=== PATIENT | female | born 1990 | race African-American/Black ===

== ENCOUNTER 2018-01-16 22:55 | Emergency (ER) | payer SELFPAY ==
[2018-01-16] MEDS: FLUORESCEIN OPHTH TEST STRIP. OS (23:09)
[2018-01-16] MEDS: TETRACAINE 0.5% OPHTH SOLUTION 4ML BOTTLE. OS (23:09)
== END 2018-01-16 23:28 | disposition home or self-care (01) ==
LOC: ER 23:28
DX: S05.02XA Injury of conjunctiva and corneal abrasion without foreign body, left eye, initial encounter (principal); E05.90 Thyrotoxicosis, unspecified without thyrotoxic crisis or storm; X58.XXXA Exposure to other specified factors, initial encounter; Y93.89 Activity, other specified; Y92.89 Other specified places as the place of occurrence of the external cause; Y99.8 Other external cause status
CPT/HCPCS: 99283

== ENCOUNTER 2020-12-03 06:37 | Emergency (ER) | payer MEDICAID ==
[~2020-12-03] VITALS: Ht 171.4 cm; Wt 77.3 kg
[~2020-12-03 06:37] MED LIST: ERYT1OIN6 LEFTEYE
[2020-12-03 07:13] VITALS: BP 135/60
--- NOTE | 2020-12-03 07:19 | PHYS DOC ---
Past Medical History Past Medical History: Hyperthyroid Additional Past Medical Histor: overactive thyroid Past Surgical History: Additional Past Surgical Histo: x 4 Smoking Status: Current Every Day Smoker Alcohol Use: Occasionally Drug Use: Marijuana General Adult EDM: Chief Complaint: SORE THROAT HPI: HPI: 30-year-old female pmh hypothyroidism presents the ED with complaints of sore throat for the past 2 days with associated mild, diffuse headache, fatigue and subjective fever and chills. Reports has been taking her temperature all weekend, T-max was 99 degrees. Has not taken any Tylenol ibuprofen prior to ED arrival. 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 Tested negative for Covid at the half-way on Thursday. Has not received Covid vaccine. Reports history of strep 6 months ago. Patient also reports history of tachycardia when noncompliant with her methimazole. Is on methimazole 10 mg ECI daily. Prescription bottle present in ED with and was last filled October 01, 2020. Has 3 refills. Patient has been intermittently taking her methimazole, believed her insurance was not active which she just found out was incorrect. Review of Systems: Review of Systems: Constitutional: Denies lethargy or confusion Eyes: Denies change in visual acuity. [] HENT: Denies nasal congestion or rhinorrhea Respiratory: Denies cough or shortness of breath. [] Cardiovascular: Denies chest pain or edema. [] GI: Denies abdominal pain, nausea, vomiting, bloody stools or diarrhea. [] : Denies dysuria or vaginal bleeding Musculoskeletal: Denies back pain or joint pain. [] Integument: Denies rash or diaphoresis Neurologic: Denies neck pain or stiffness, focal weakness or sensory changes. [] Endocrine: Denies polyuria or polydipsia. [] Lymphatic: Denies swollen glands. [] Psychiatric: Denies depression or anxiety. [] Heart Score: C/O Chest Pain: No Risk Factors: Risk Factors: DM, Current or recent (<one month) smoker, HTN, HLP, family history of CAD, obesity. Risk Scores: Score 0 - 3: 2.5% MACE over next 6 weeks - Discharge Home Score 4 - 6: 20.3% MACE over next 6 weeks - Admit for Clinical Observation Score 7 - 10: 72.7% MACE over next 6 weeks - Early Invasive Strategies Allergies: Allergies: Allergies Coded Allergies Type Severity Reaction Last Updated Verified No Known Drug Allergies 02/26/15 No Physical Exam: PE: Constitutional: Well developed, well nourished, no acute distress, non-toxic appearance. HENT: Normocephalic, atraumatic, moist mucous membranes, very large nonerythematous tonsils with bilateral exudates (tonsils almost touching, approximately 80% oropharynx width)-Mallampati 4, uvula midline, no palatal petechiae, tongue in normal position, no submental pain Eyes: EOMI, conjunctiva normal, no discharge. Neck: Normal range of motion, supple, no anterior/posterior neck pain or swelling, no nuchal rigidity or meningismus, Cardiovascular: S1/2 present, mild tachycardia 104 on arrival, 84 during my exam Lungs & Thorax: Speaking in full sentences, bilateral equal chest rise, no tachypnea or increased work of breathing, no drooling or spitting/is controlling her secretions Abdomen: soft, no tenderness, Skin: Warm, dry, no erythema, no rash. [] Back: No midline tenderness, no CVA tenderness. [] Extremities: No tenderness, no cyanosis, no lower extremity edema Neurologic: Alert and oriented X 3, normal motor function, normal sensory function, no focal deficits noted. [] Psychologic: Affect normal, judgement normal, mood normal/very reasonable EKG: EKG: [] Radiology/Procedures: Radiology/Procedures: [] Course & Med Decision Making: Course & Med Decision Making Pertinent Labs and Imaging studies reviewed. (See chart for details) COVID-19 CRITERIA: The patient was evaluated during the global COVID-19 pandemic, and that diagnosis was suspected/considered upon their initial presentation. Their evaluation, treatment and testing was consistent with current guidelines for patients who present with complaints or symptoms that may be related to COVID-19. Concern for acute streptococcal pharyngitis. I recommended labs for Monospot testing, test and LFT check. Rapid strep positive. Covid test pending. Patient requests medication refill for methimazole- test negative. Will discharge home with strict ED return precautions were given for worsening neck pain, nuchal rigidity, difficulties controlling secretions, speech changes, difficulties breathing, worsening fever rash confusion. Encouraged urgent outpatient follow-up with PMD for repeat evaluation and hemoglobin check. Life- threatening processes were considered but are low suspicion at this time, given history, physical exam and ED workup. Pt was educated on all prescription medications and adverse effects. All patient's questions were answered and pt was stable at time of discharge. Life/limb-threatening differential includes but is not limited to, reese's angina, peritonsillar abscess, retropharyngeal abscess, epiglottitis, bacterial tracheitis, uvulitis, sepsis, mastoiditis, traumatic injury, carotid/vertebral dissection, intracranial aneurysms or neurologic process. I spoken with the patient and her caregivers. I explained the patient's condi tion, diagnoses and treatment plan based on the information available to me at this time. I have answered the patient and her caregiver's questions and addressed any concerns. The patient and her caregivers have a good understanding of patient's diagnosis, condition and treatment plan as can be expected at this point. Vital signs have been stable. Patient's condition is stable and appropriate for discharge from the emergency department. Patient will pursue further outpatient evaluation with primary care physician or other designated or consulting physician as outlined in the discharge instructions. The patient and/or caregivers are agreeable to this plan of care and follow-up instructions have been explained in detail. The patient and/or caregivers have received these instructions in written form and have expressed an understanding of the discharge instructions. The patient and/or caregivers are aware that any significant change of condition or worsening of symptoms should prompt immediate return to this or the closest emergency department or call to 911. Alexey Disclaimer: Alexey Disclaimer: This electronic medical record was generated, in whole or in part, using a voice recognition dictation system. Departure Departure Impression: Primary Impression: Acute streptococcal pharyngitis Additional Impressions: Person under investigation for COVID-19 Microcytic anemia Disposition: HOME / SELF CARE / HOMELESS Condition: STABLE Referrals: NO PCP (PCP) Follow-up with your primary care physician in the next week to have hemoglobin rechecked (was 8.7) or FOLLOW UP WITH FAMILY MEDICINE: [address], [address] [place] [address] Phone: [phone] Patient Instructions: Iron Deficiency Anemia, Strep Throat Additional Instructions: Return to ED immediately if your oxygen level drops below 90% (purchase a pulse oximetry at a medical supply store), difficulties breathing including rapid breathing or increased work of breathing (skin sucking under ribs), chest pain or stroke-like symptoms (facial droop, speech changes, arm/leg weakness). EMERGENCY DEPARTMENT GENERAL DISCHARGE INSTRUCTIONS Thank you for coming to [facility] Emergency Department (ED) today and trusting us with you care. We trust that you had a positive experience in our Emergency Department. If you wish to speak to the department management, you may call the Director at [phone]. YOUR FOLLOW UP INSTRUCTIONS ARE FOLLOWS: 1. Do you have a private Doctor? If you do not have a private doctor, please ask for a resource list of physicians or clinics that may be able to assist you with follow up care. 2. The Emergency Physicain has interpreted your x-rays. The X-Ray specialist will also review them. If there is a change in the findings, you will be notified in 48 hours when at all possible. 3. A lab test or culture has been done, your results will be reviewed and you will be notified if you need a change in treatment. ADDITIONAL INSTRUCTIONS AND INFORMATION: 1. Your care today has been supervised by a physician who is specially trained in emergency care. Many problems require more than one evaluation for a complete diagnosis and treatment. We recommend that you schedule your follow up appointment as recommended to ensure complete treatment of you illness or injury. If you are unable to obtain follow up care and continue to have a problem, or if your condition worsens, we recommend that you return to the ED. 2. We are not able to safely determine your condition over the phone nor are we able to give sound medical advice over the phone. For these safety reasons, if you call for medical advice we will ask you to come to the ED for further evaluation. 3. If you have any questions regarding these discharge instructions please call the ED at [phone]. SAFETY INFORMATION: In the interest of safety, wellness, and injury prevention; we encourage you to wear your sealbelt, if you smoke; quite smoking, and we encourage family to use a protective helmet for bicycling and other sporting events that present an increased risk for head injury. IF YOUR SYMPTOMS WORSEN OR NEW SYMPTOMS DEVELOP, OR YOU HAVE CONCERNS ABOUT YOUR CONDITION; OR IF YOUR CONDITION WORSENS WHILE YOU ARE WAITING FOR YOUR FOLLOW UP APPOINTMENT; EITHER CONTACT YOUR PRIMARY CARE DOCTOR, THE PHYSICIAN WHOSE NAME AND NUMBER YOU WERE GIVEN, OR RETURN TO THE ED IMMEDIATELY. Scripts Benzocaine/Menthol (CEPACOL SORE THROAT LOZENGE) 1 Each Lozenge 1 TAB PO Q4HRS for sore throat for 3 Days, #18 TAB 0 Refills Prov: SHANTELL MACIEL DO 12/03/20 Ferrous Sulfate (IRON) 325 Mg Tablet 1 TAB PO DAILY for 30 Days, #30 TAB 0 Refills Prov: SHANTELL MACIEL DO 12/03/20 Penicillin V Potassium (PENICILLIN V POTASSIUM) 500 Mg Tablet 1 TAB PO QID for 10 Days, #40 TAB Prov: SHANTELL MACIEL DO 12/03/20 Methimazole (TAPAZOLE) 10 Mg Tablet 1 TAB PO DAILY for 30 Days, #30 TAB 0 Refills Prov: SHANTELL MACIEL DO 12/03/20 SHANTELL MACIEL DO December 03, 2020 07:19
[2020-12-03] MEDS ORDERED: DEXAMETHASONE 4 MG TABLET PO ONE (07:30)
[2020-12-03 07:48] LABS: BASO # 0.1 x10^3/uL (0.0-0.2); BASO % 1 % (0-3); EOS % 0 % (0-3); HEMATOCRIT 28.3 % (36.0-47.0); HEMOGLOBIN 8.7 g/dL (12.0-15.5); LYMPH # 1.2 x10^3/uL (1.0-4.8); LYMPH % 10 % (24-48); MEAN CORPUSCULAR HEMOGLOBIN 20 pg (25-35); MEAN CORPUSCULAR HGB CONC 31 g/dL (31-37); MEAN CORPUSCULAR VOLUME 65 fL (79-100); MONO % 8 % (0-9); NEUT # 10.6 x10^3/uL (1.8-7.7); NEUT % 82 % (31-73); PLATELET COUNT 257 x10^3/uL (140-400); RED BLOOD COUNT 4.36 x10^6/uL (3.50-5.40); RED CELL DISTRIBUTION WIDTH 17.3 % (11.5-14.5)
[2020-12-03 08:00] LABS: CALCIUM 8.3 mg/dL (8.5-10.1); CREATININE 0.6 mg/dL (0.6-1.0); GFR 140.2; POTASSIUM 3.4 mmol/L (3.5-5.1)
[2020-12-03 08:04] LABS: MONONUCLEOSIS PATIENT NEGATIVE (NEGATIVE)
[2020-12-03 08:06] LABS: ALBUMIN 3.6 g/dL (3.4-5.0); ALBUMIN/GLOBULIN RATIO 0.8 (1.0-1.7); TOTAL BILIRUBIN 0.5 mg/dL (0.2-1.0); TOTAL PROTEIN 8.2 g/dL (6.4-8.2)
[2020-12-03 08:24] LABS: PREG TEST PT QUAL NEGATIVE (NEG)
[2020-12-03 08:37] LABS: ANISOCYTOSIS SLIGHT; PLT ESTIMATE ADEQUATE (ADEQUATE)
[2020-12-03] MEDS ORDERED: METH-184 PO (08:53)
[2020-12-03] MEDS ORDERED: PENI500T PO (08:53)
[2020-12-03] MEDS ORDERED: BENZ1LOZ48 PO (08:53)
[2020-12-03] MEDS ORDERED: FERR-36 PO (08:53)
--- NOTE | 2020-12-03 15:14 | NUR ---
IP: Informed pt of negative covid results. Pt verbalized understanding.
== END 2020-12-03 09:23 | disposition home or self-care (01) ==
LOC: ER 06:37
DX: J02.0 Streptococcal pharyngitis (principal); B95.0 Streptococcus, group A, as the cause of diseases classified elsewhere; Z20.822 Contact with and (suspected) exposure to COVID-19; D50.9 Iron deficiency anemia, unspecified; F17.200 Nicotine dependence, unspecified, uncomplicated
CPT/HCPCS: 36415; 80053; 84703; 85025; 86308; 87880; 99283; U0003; U0005